=== PATIENT | male | born 1975 | race Caucasian/White ===

== ENCOUNTER 2023-11-20 06:36 | Day surgery (SDC) | payer OTHER ==
[~2023-11-20] VITALS: Ht 182.9 cm; Wt 72.7 kg
[2023-11-20] MEDS ORDERED: SODIUM CHLORIDE 0.9% 1,000 ML ONE (07:18)
[2023-11-20] MEDS: SODIUM CHLORIDE 0.9% 1,000 ML IV ONE (07:33)
[2023-11-20 08:01] LABS: GLUCOMETER DEV NAME(LOC) SDS.; GLUCOSE,POINT OF CARE 130 MG/DL (70-110)
[2023-11-20] MEDS ORDERED: FentaNYL CITRATE PF 100 MCG/2 ML VIAL ONE (08:19)
[2023-11-20] MEDS ORDERED: MIDAZOLAM HCL 2 MG/2 ML VIAL ONE (08:19)
[2023-11-20] MEDS ORDERED: METF-1211 PO (08:39)
[2023-11-20] MEDS ORDERED: ATOR10TA69 PO (08:39)
[2023-11-20 09:20] VITALS: PULSE 72; RESP 14; O2SAT 100
[2023-11-20] MEDS ORDERED: MethylPREDNISolone SOD SUCC 125 MG/2 ML VIAL ONE (10:06)
[2023-11-20] MEDS: MethylPREDNISolone SOD SUCC 125 MG/2 ML VIAL IVP ONE (10:18)
[2023-11-20] MEDS ORDERED: BENZOCAINE 20% 50 MCG/SPRAY 57 GM TP ONE (12:00)
[2023-11-20] MEDS ORDERED: LIDOCAINE 4% 50 ML SOLUTION TP ONE (12:00)
[2023-11-20] MEDS ORDERED: ALBUTEROL SULFATE 2.5 MG/0.5 ML NEB SOLUTION NEB ONE (12:00)
[2023-11-20] MEDS ORDERED: LIDOCAINE 2% 11 ML JELLY TP ONE (12:00)
== END 2023-11-20 11:15 | disposition home or self-care (01) ==
LOC: SURGERY 06:36
PROVIDERS: ATTEND Internal Medicine Critical Care Medicine
DX: R05.3 Chronic cough (principal); R06.2 Wheezing; R91.8 Other nonspecific abnormal finding of lung field; J38.4 Edema of larynx; B37.0 Candidal stomatitis; I10 Essential (primary) hypertension; J18.9 Pneumonia, unspecified organism; E11.9 Type 2 diabetes mellitus without complications; E78.00 Pure hypercholesterolemia, unspecified; Z87.891 Personal history of nicotine dependence; Z79.84 Long term (current) use of oral hypoglycemic drugs
CPT/HCPCS: 82962; 87206; 87101; 87220; 87070; 87186; 31623; 31624; 94640; 71045; 87015; J3010; J2250; J2919; Q9967; J7030; 88108; J7613; Z7610